=== PATIENT | female | born 1955 | race Caucasian/White ===

== ENCOUNTER → 2016-11-18 | Outpatient (CLI) | payer BC ==
[~2016-11-18] MED LIST: CLAR10TA13 PO; IBUP200C PO; ISOVUE-370 76% 100ML VIAL (Q9967) As Ordered ONE; PANT40TA2 PO; PROT1TAB2 PO; PROTPAK PO; TYLE325T5 PO; ZOLP5TAB PO
--- NOTE | 2016-11-18 17:51 | REP ---
CT study of the chest with IV contrast: History: Restaging baseline for starting chemotherapy with right paratracheal endobronchial adenocarcinoma. Comparison CT study is from August 31, 2016. Comparison PET/CT study is reviewed from August 26, 2016. CT contrast dose: 75 ml of Isovue 370 is administered intravenously. Findings: The right paratracheal mediastinal mass noted to be avid on PET scintigraphy is again seen. This indents the right lateral margin of the distal trachea and the superior margin of the mainstem bronchus. It measures 2.9 cm in craniocaudal span by 1.5 cm in medial to lateral by 1.9 cm anterior to posterior. There is subtle irregularity of the right anterolateral distal tracheal margin just above the teresa. The lesion is only very slightly larger than on the August 31, 2016 study. There is post-treatment or postobstructive change in some of the right upper lobe distribution with air bronchograms and partial collapse. There is some associated fibrosis. Remaining lung macdonald are clear. No pulmonary parenchymal mass lesion is seen. There is a small right pleural effusion. This appears to be slightly decreased. There is a small amount of pericardial effusion. This is decreased since the August 31, 2016 study. No adrenal lesion is seen. Gallstones are noted in the gallbladder. No liver mass lesion is observed. An Sxycfx-L-Jlfx catheter is noted via the left side. Impression: 2.9 cm right paratracheal mass, which indents the right lateral and the right anterior margin of the trachea and the right mainstem bronchus. Postoperative and post-treatment volume loss in the right lung. Small right pleural and small pericardial effusion. Signed by Kali Morgan MD 11/18/2016 06:40 P
== END ==
LOC: M RAD 16:23
PROVIDERS: ATTEND Internal Medicine Medical Oncology
DX: C34.90 Malignant neoplasm of unspecified part of unspecified bronchus or lung (principal); J90 Pleural effusion, not elsewhere classified
CPT/HCPCS: 71260; Q9967

== ENCOUNTER → 2016-12-10 | Outpatient (REF) | payer BC ==
[~2016-12-10] MED LIST changes: -ISOVUE-370 76% 100ML VIAL (Q9967) As Ordered ONE
== END ==
LOC: M LAB REF 13:08
PROVIDERS: ATTEND Internal Medicine Medical Oncology
DX: C34.90 Malignant neoplasm of unspecified part of unspecified bronchus or lung (principal); C50.919 Malignant neoplasm of unspecified site of unspecified female breast

== ENCOUNTER → 2017-01-14 | Outpatient (CLI) | payer BC, OTHER ==
[~2017-01-14] MED LIST changes: +ISOVUE-370 76% 100ML VIAL (Q9967) As Ordered ONE
--- NOTE | 2017-01-14 09:40 | REP ---
Clinical: Restaging lung cancer. Follow-up. Technique: Axial contrast enhanced images from the thoracic inlet to the upper abdomen using 100 ml Isovue 370 intravenous contrast material with coronal and sagittal re-formations. Comparison: 11/18/2016. Findings: Chronic post radiation and postsurgical changes involving the right upper lobe emanating from the hilum to the periphery as well as small similar appearing area along the medial aspect of the left upper lobe abutting the mediastinum remains stable. The soft tissue area along the right paratracheal mediastinum which was no to be positive on PET CT currently measures approximately 1.8 x 1.8 x 2.5 cm and is essentially unchanged compared to 11/18/2016 (images 18 - 25). No new areas of abnormal soft tissue, pulmonary consolidation, nodule or mass lesion are identified and the lung macdonald are otherwise aerated and stable. Postsurgical tenting and elevation along the right diaphragmatic surface remains unchanged. No new pleural effusion/reaction. No pneumothorax. The mediastinum demonstrates normal, stable appearance to the thoracic aorta, heart and pericardium with small stable pericardial fluid again identified. Musculoskeletal structures are intact. Limited evaluation of the upper abdomen again demonstrates cholelithiasis and subcentimeter hepatic cyst along with normal bilateral adrenal glands. Impression: 1. Right paratracheal soft tissue density which was positive on PET CT in the midst of the surrounding stable postradiation and postsurgical changes is unchanged when compared to 11/18/2016. 2. No new acute mediastinal or pleuroparenchymal process is appreciated. 3. Abdominal findings unchanged including sub centimeter hepatic cyst, cholelithiasis and normal bilateral adrenal glands. Signed by Kyler Valdivia MD 01/14/2017 09:31 A
== END ==
LOC: M RAD 08:12
PROVIDERS: ATTEND Nurse Practitioner Family
DX: C34.90 Malignant neoplasm of unspecified part of unspecified bronchus or lung (principal)
CPT/HCPCS: 71260; Q9967

== ENCOUNTER → 2017-03-17 | Outpatient (CLI) | payer BC, OTHER ==
[~2017-03-17] MED LIST changes: -ISOVUE-370 76% 100ML VIAL (Q9967) As Ordered ONE
--- NOTE | 2017-03-18 09:47 | REP ---
PET/CT: HISTORY: Restaging non-small cell lung carcinoma. Right paratracheal and endotracheal recurrence in a previously radiated field. There is also a previous history of breast carcinoma in 2008. The patient is status post recent chemotherapy for the lung malignancy. COMPARISONS: Comparison PET-CT studies are reviewed from August 26, 2016 and January 03, 2015. June 21, 2014 PET/CT is also reviewed. Comparison chest CT study most recently is from January 14, 2017. TECHNIQUE: 53 minutes following the intravenous injection of a 7.6 mCi dose of F-18 FDG, three-dimensional PET scintigraphy is acquired from the skull base to the proximal thighs. Triplanar noncontrast CT scanning is acquired through the same anatomic range for attenuation correction, and image registration with scan parameters optimized to minimize radiation exposure to the patient. PET scintigraphy and CT datasets were fused and displayed on a workstation with multiplanar and projection display capability. PET/CT FINDINGS: There is persistent hypermetabolic donna uptake in the right paratracheal region of the mediastinum on today's PET scintigraphy. Maximum standard uptake value is 5.4. Previously the standard uptake value in this lesion was 10.0. It appears smaller as well. No other abnormal hilar or mediastinal hypermetabolic focus is seen. There is considerable scarring and partial collapse in the right upper lobe postradiation change and there is some pleural thickening or pleural fluid in the right base. Mild pericardial effusion is seen. The head and neck soft tissues are unremarkable. No abnormal skeletal hypermetabolic uptake is appreciated. No abnormal hypermetabolic uptake is seen in the abdomen or pelvis. Incidental note is again made of gallstones. There is a left-sided Umxyih-J-Etrg catheter. IMPRESSION: PET scintigraphy consistent with partial response. Some residual right paratracheal mediastinal hypermetabolic uptake remains, decreased in avidity and size since the prior PET/CT study. Signed by Kali Morgan MD 03/18/2017 12:38 P
== END ==
LOC: M PLARAD 14:13
PROVIDERS: ATTEND Internal Medicine Medical Oncology
DX: C34.90 Malignant neoplasm of unspecified part of unspecified bronchus or lung (principal)
CPT/HCPCS: 78815; A9552

== ENCOUNTER → 2017-05-18 | Outpatient (CLI) | payer BC, OTHER ==
[~2017-05-18] MED LIST changes: -CLAR10TA13 PO; +CLAR1TAB13 PO; -IBUP200C PO; +IBUP200C10 PO
== END ==
LOC: M PLARAD 12:52
PROVIDERS: ATTEND Nurse Practitioner Family
DX: C34.90 Malignant neoplasm of unspecified part of unspecified bronchus or lung (principal)
CPT/HCPCS: 78815; A9552

== ENCOUNTER → 2017-05-26 | Outpatient (CLI) | payer BC, OTHER ==
--- NOTE | 2017-06-01 13:47 | REP ---
Whole body PET CT scan: Comparison is a whole body PET CT scan dated 03/17/2017. Neck and supraclavicular areas: There are no hypermetabolic foci. This is unchanged. Chest: There is a persisting hypermetabolic focus in the right paratracheal zone just above the bronchus intermedius, similar to the prior study. The standard uptake value today measures 6.42. This is likely within a paratracheal node. The node measures a 1 cm short axis. This is not significantly changed from the prior study. Right perihilar parenchymal scarring without hypermetabolic uptake is again identified, unchanged. Abdomen, pelvis and upper thighs: There are no hypermetabolic foci. This is unchanged. Diffuse skeletal uptake is noted in vertebral bodies and femoral shafts bilaterally, likely secondary to marrow stimulation. Impression: There is a focal persisting right paratracheal hypermetabolic focus, similar to the prior study. No other hypermetabolic foci are identified. The studies performed with 10 mCi of F 18 FDG. Signed by Neo Restrepo MD 06/01/2017 01:39 P
== END ==
LOC: M PLARAD 08:20
PROVIDERS: ATTEND Nurse Practitioner Family
DX: C34.90 Malignant neoplasm of unspecified part of unspecified bronchus or lung (principal)
CPT/HCPCS: 78815; A9552

== ENCOUNTER → 2017-08-11 | Outpatient (CLI) | payer BC, OTHER ==
--- NOTE | 2017-08-14 10:49 | REP ---
Whole body PET CT scan for restaging lung carcinoma: Comparisons are the prior whole body PET CT scan dated 05/26/[address] dated 01/14/2017. Whole-body scanning is performed from skull base to the upper thighs. Neck and supraclavicular areas: There is uptake in the costovertebral joint of the right first rib as an interval change with the maximal standard uptake value measuring 4.5. There are no other foci in the neck or supraclavicular areas. Chest: There is a focal zone of soft tissue fullness in the right paratracheal area, again demonstrating uptake with the maximal standard uptake value measuring 8.6. The uptake in this area or previous he had a standard uptake value of 6.4. There is a pericardial effusion as an interval change. There is an an Blxtyk-A-Arsq catheter entering from left with the tip at the confluence of the superior vena cava and right atrium. There is a focal zone of uptake in the right atrium at the tip of this Rikknz-W-Kgxg catheter with a maximal standard uptake value of 6.6. The uptake in this location previously measured 3.9. There is a small right pleural effusion is slightly larger than previously. There are no other foci in the chest. Abdomen, pelvis and upper thighs: There are no hypermetabolic foci. Specifically there are no adrenal foci. There are no hepatic foci. There is a diffuse skeletal uptake as previously, likely from marrow stimulation medication. Impression: The There is new uptake in the costovertebral junction of the right first rib. There is persisting uptake in the right paratracheal area. There is persisting uptake in the right atrium at the tip of the Mjxkfu-G-Tcgt catheter. These foci are unchanged. There is a small right pleural effusion, slightly larger than previously. There is a pericardial effusion, not present previously. There is chronic parenchymal scarring and retraction posteromedially in the upper lobe of the right lung, unchanged. Signed by Neo Restrepo MD 08/14/2017 10:41 A
== END ==
LOC: M PLARAD 09:34
PROVIDERS: ATTEND Internal Medicine Medical Oncology
DX: C34.90 Malignant neoplasm of unspecified part of unspecified bronchus or lung (principal)
CPT/HCPCS: 78815; A9552

== ENCOUNTER → 2017-09-20 | Outpatient (REF) | payer BC, OTHER | LOC: M LAB REF 17:20 | PROVIDERS: ATTEND Internal Medicine Medical Oncology | DX: C34.90 Malignant neoplasm of unspecified part of unspecified bronchus or lung (principal); C50.919 Malignant neoplasm of unspecified site of unspecified female breast ==

== ENCOUNTER → 2017-10-11 | Outpatient (REF) | payer BC, OTHER | LOC: M LAB REF 18:24 | PROVIDERS: ATTEND Internal Medicine Medical Oncology | DX: C34.90 Malignant neoplasm of unspecified part of unspecified bronchus or lung (principal); C50.919 Malignant neoplasm of unspecified site of unspecified female breast ==

== ENCOUNTER → 2017-11-01 | Outpatient (REF) | payer BC, OTHER ==
[2017-11-01 21:44] LABS: THYROID STIMULATING HORMONE 0.571 uIU/ML (0.358-3.740)
== END ==
LOC: M LAB REF 17:59
DX: C50.919 Malignant neoplasm of unspecified site of unspecified female breast (principal); C78.00 Secondary malignant neoplasm of unspecified lung
CPT/HCPCS: 84443

== ENCOUNTER → 2017-11-22 | Outpatient (REF) | payer BC, OTHER | LOC: M LAB REF 18:27 | DX: C50.919 Malignant neoplasm of unspecified site of unspecified female breast (principal); C34.90 Malignant neoplasm of unspecified part of unspecified bronchus or lung | CPT/HCPCS: 84443 ==

== ENCOUNTER → 2017-12-17 | Outpatient (CLI) | payer BC, OTHER ==
[~2017-12-17] MED LIST changes: -CLAR1TAB13 PO; +GASTROGRAFIN SOLUTION 30ML (Q9963) As Ordered; -IBUP200C10 PO; +ISOVUE-370 76% 100ML VIAL (Q9967) As Ordered; -PANT40TA2 PO; -PROT1TAB2 PO; -PROTPAK PO; -TYLE325T5 PO; -ZOLP5TAB PO
== END ==
LOC: M RAD 10:39
DX: C34.90 Malignant neoplasm of unspecified part of unspecified bronchus or lung (principal)

== ENCOUNTER → 2017-12-20 | Outpatient (REF) | payer BC, OTHER | LOC: M LAB REF 17:51 | DX: C50.919 Malignant neoplasm of unspecified site of unspecified female breast (principal); C34.90 Malignant neoplasm of unspecified part of unspecified bronchus or lung | CPT/HCPCS: 84443 ==

== ENCOUNTER → 2018-01-10 | Outpatient (REF) | payer BC, OTHER ==
[2018-01-10 19:25] LABS: THYROID STIMULATING HORMONE 0.808 uIU/ML (0.358-3.740)
== END ==
LOC: M LAB REF 17:25
DX: C34.90 Malignant neoplasm of unspecified part of unspecified bronchus or lung (principal); C50.919 Malignant neoplasm of unspecified site of unspecified female breast
CPT/HCPCS: 84443

== ENCOUNTER → 2018-02-09 | Outpatient (CLI) | payer BC, OTHER ==
[~2018-02-09] MED LIST changes: -GASTROGRAFIN SOLUTION 30ML (Q9963) As Ordered
== END ==
LOC: M RAD 14:12
DX: R05 Cough (principal); C34.90 Malignant neoplasm of unspecified part of unspecified bronchus or lung; R06.2 Wheezing; I31.3 Pericardial effusion (noninflammatory); N20.0 Calculus of kidney

== ENCOUNTER → 2018-02-21 | Outpatient (REF) | payer BC, OTHER ==
[2018-02-21 19:21] LABS: THYROID STIMULATING HORMONE 0.511 uIU/ML (0.358-3.740)
== END ==
LOC: M LAB REF 18:41
DX: Z79.899 Other long term (current) drug therapy (principal); C79.31 Secondary malignant neoplasm of brain; Z85.3 Personal history of malignant neoplasm of breast
CPT/HCPCS: 84443

== ENCOUNTER → 2018-03-14 | Outpatient (REF) | payer BC, OTHER ==
[2018-03-14 19:02] LABS: THYROID STIMULATING HORMONE 0.436 uIU/ML (0.358-3.740)
== END ==
LOC: M LAB REF 17:52
DX: Z79.899 Other long term (current) drug therapy (principal); C34.11 Malignant neoplasm of upper lobe, right bronchus or lung; C79.31 Secondary malignant neoplasm of brain; Z85.3 Personal history of malignant neoplasm of breast
CPT/HCPCS: 84443

== ENCOUNTER → 2018-04-25 | Outpatient (REF) | payer OTHER | LOC: M LAB REF 17:20 | DX: Z79.899 Other long term (current) drug therapy (principal); C34.11 Malignant neoplasm of upper lobe, right bronchus or lung; C79.31 Secondary malignant neoplasm of brain; Z85.3 Personal history of malignant neoplasm of breast | CPT/HCPCS: 84443 ==

== ENCOUNTER → 2018-05-02 | Outpatient (CLI) | payer BC, OTHER | LOC: M RAD 10:07 | DX: C34.90 Malignant neoplasm of unspecified part of unspecified bronchus or lung (principal) | CPT/HCPCS: Q9967 ==

== ENCOUNTER → 2018-05-06 | Outpatient (CLI) | payer BC, OTHER ==
[~2018-05-06] MED LIST changes: -ISOVUE-370 76% 100ML VIAL (Q9967) As Ordered; +PROHANCE 279.3MG/ML 5ML VIAL (A9576) As Ordered
== END ==
LOC: M RAD 12:25
DX: Z85.3 Personal history of malignant neoplasm of breast (principal); Z96.89 Presence of other specified functional implants
CPT/HCPCS: A9576

== ENCOUNTER → 2018-05-16 | Outpatient (REF) | payer BC, OTHER ==
[2018-05-16 19:13] LABS: THYROID STIMULATING HORMONE 0.972 uIU/ML (0.358-3.740)
== END ==
LOC: M LAB REF 17:53
DX: C34.11 Malignant neoplasm of upper lobe, right bronchus or lung (principal); C79.31 Secondary malignant neoplasm of brain; Z85.3 Personal history of malignant neoplasm of breast; Z79.899 Other long term (current) drug therapy
CPT/HCPCS: 84443

== ENCOUNTER → 2018-07-18 | Outpatient (REF) | payer OTHER | LOC: M LAB REF 18:03 | DX: C34.11 Malignant neoplasm of upper lobe, right bronchus or lung (principal); C79.31 Secondary malignant neoplasm of brain; Z85.3 Personal history of malignant neoplasm of breast ==

== ENCOUNTER → 2018-08-16 | Outpatient (CLI) | payer BC, OTHER | LOC: M PLARAD 15:25 | DX: C34.11 Malignant neoplasm of upper lobe, right bronchus or lung (principal); Z85.3 Personal history of malignant neoplasm of breast; J84.10 Pulmonary fibrosis, unspecified; I31.3 Pericardial effusion (noninflammatory); K80.20 Calculus of gallbladder without cholecystitis without obstruction; N28.1 Cyst of kidney, acquired | CPT/HCPCS: 78815 ==

== ENCOUNTER → 2018-11-11 | Day surgery (SDC) | payer BC, OTHER ==
[~2018-11-11] VITALS: Ht 157.5 cm; Wt 68.0 kg
[~2018-11-11] MED LIST changes: +BIOT10TA2 PO; +CALCTAB75 PO; +CLAR1TAB13 PO; +FISH120016 PO; +GABA-1171 PO; +IBUP200C25 PO; +LIDOCAINE 2% INJ 100 MG/5 ML SDV (FOR ANES.) As Ordered ONE; +MULT1TAB10 PO; +PANT40TA3 PO; -PROHANCE 279.3MG/ML 5ML VIAL (A9576) As Ordered; +PROPOFOL 200 MG/20 ML VIAL As Ordered ONE; +PROT1TAB2 PO; +PROTPAK PO; +TRAM50TA2 PO; +TYLE325T5 PO; +ZOLP5TAB PO; +[UNRECOGNIZED DRUG - OTHER] IV; +[UNRECOGNIZED DRUG - OTHER] IV; +fentaNYL 100 MCG/2 ML INJECTION (J3010) As Ordered ONE
== END | disposition home or self-care (01) ==
LOC: M OPP 10:48
PROVIDERS: ATTEND Internal Medicine Gastroenterology
DX: R12 Heartburn (principal); Z53.8 Procedure and treatment not carried out for other reasons

== ENCOUNTER 2018-12-29 13:02 | Day surgery (SDC) | payer BC, OTHER ==
[~2018-12-29] VITALS: Ht 157.5 cm; Wt 68.9 kg
[~2018-12-29 13:02] MED LIST changes: -LIDOCAINE 2% INJ 100 MG/5 ML SDV (FOR ANES.) As Ordered ONE; -PROPOFOL 200 MG/20 ML VIAL As Ordered ONE; -fentaNYL 100 MCG/2 ML INJECTION (J3010) As Ordered ONE
[2018-12-29] MEDS ORDERED: NS 1,000 ML IV ONE (14:00)
[2018-12-29] MEDS ORDERED: PROPOFOL 200 MG/20 ML VIAL As Ordered ONE (14:16)
[2018-12-29] MEDS ORDERED: LIDOCAINE 2% INJ 100 MG/5 ML SDV (FOR ANES.) As Ordered ONE (14:16)
[2018-12-29] MEDS ORDERED: fentaNYL 100 MCG/2 ML INJECTION (J3010) As Ordered ONE (14:34)
--- NOTE | 2018-12-29 14:56 | ROOR ---
Patient Name: Arlyn Bright Procedure Date: 12/29/2018 2:38 PM Date of : 1955 Age: 63 Room: [facility] Gender: Female Note Status: Finalized Procedure: Upper GI endoscopy Indications: Surveillance for malignancy due to personal history of Quinonez's esophagus Providers: Mejia THOMPSON MD Referring MD: NGOC STALLNIGS MD Requesting Provider: Medicines: Monitored Anesthesia Care Complications: No immediate complications. Procedure: Pre-Anesthesia Assessment: - The heart rate, respiratory rate, oxygen saturations, blood pressure, adequacy of pulmonary ventilation, and response to care were monitored throughout the procedure. The Endoscope was introduced through the mouth, and advanced to the second part of duodenum. The upper GI endoscopy was accomplished without difficulty. The patient tolerated the procedure well. Findings: There were esophageal mucosal changes consistent with short-segment Quinonez's esophagus present in the distal esophagus. The maximum longitudinal extent of these mucosal changes was 1 cm in length. Mucosa was biopsied with a cold forceps for histology randomly from 35 to 36 cm from the incisors. The entire examined stomach was normal. The examined duodenum was normal. Impression: - Esophageal mucosal changes consistent with short-segment Quinonez's esophagus. Biopsied. - Normal stomach. - Normal examined duodenum. Recommendation: - Repeat upper endoscopy in 3 years for surveillance. - (repeat colonoscopy will also be due in 2021) Mejia Thompson MD Mejia THOMPSON MD 12/29/2018 2:55:55 PM This report has been signed electronically. Number of Addenda: 0 Note Initiated On: 12/29/2018 2:38 PM Estimated Blood Loss: Estimated blood loss: none.
[2018-12-29 15:19] VITALS: BP 103/66
== END 2018-12-29 15:21 | disposition home or self-care (01) ==
LOC: M OPP 13:02
PROVIDERS: ATTEND Internal Medicine Gastroenterology
DX: K22.70 Barrett's esophagus without dysplasia (principal)
CPT/HCPCS: 43239; 88305; J3010

== ENCOUNTER → 2019-02-07 | Outpatient (CLI) | payer BC, OTHER ==
[~2019-02-07] MED LIST changes: +KEYT1INJ IV
--- NOTE | 2019-02-07 12:57 | REP ---
PET/CT: HISTORY: Monitoring response. Restaging non-small cell lung carcinoma. Post chemotherapy. The patient also has a history of stage II right breast malignancy status post chemo and radiation therapy. COMPARISONS: Comparison is made with PET-CTs, the most recent of which is from August 16, 2018. TECHNIQUE: 55 minutes following the intravenous injection of a 8.91 mCi dose of F-18 FDG, three-dimensional PET scintigraphy is acquired from the skull base to the proximal thighs. Triplanar noncontrast CT scanning is acquired through the same anatomic range for attenuation correction, and image registration with scan parameters optimized to minimize radiation exposure to the patient. PET scintigraphy and CT datasets were fused and displayed on a workstation with multiplanar and projection display capability. PET/CT FINDINGS: There is no definite abnormal hypermetabolic uptake in the chest. Post-treatment changes are again noted in the right upper lobe perihilar region. In the region of the azygos vein there is an area of FDP accumulation with maximum standard uptake value 3.8. This is essentially the same avidity as mediastinal blood and is probably vascular. It is unchanged. There is no donna or pulmonary parenchymal hypermetabolic uptake. A small pericardial effusion persists without hypermetabolic uptake. Pleuroparenchymal reaction is again seen in the right base. No abnormal hypermetabolic uptake is seen within the abdomen or pelvis. Head and neck soft tissues are unremarkable. IMPRESSION: Stable PET scintigraphic findings. No abnormal hypermetabolic uptake seen. Electronically Signed by Kali Morgan MD 02/07/2019 01:04 P
== END ==
LOC: M PLARAD 08:25
PROVIDERS: ATTEND Nurse Practitioner Family
DX: C34.90 Malignant neoplasm of unspecified part of unspecified bronchus or lung (principal); Z51.81 Encounter for therapeutic drug level monitoring; Z92.21 Personal history of antineoplastic chemotherapy; Z92.3 Personal history of irradiation; Z85.3 Personal history of malignant neoplasm of breast
CPT/HCPCS: 78815; A9552

== ENCOUNTER → 2019-05-09 | Outpatient (CLI) | payer BC, OTHER ==
[~2019-05-09] MED LIST changes: +CALCD50TA PO; +MULTCAP PO; +POTA1TAB14 PO; +PROHANCE 279.3MG/ML 15ML VIAL (A9576) As Ordered ONE; +VALA1TAB64 PO
--- NOTE | 2019-05-09 12:04 | REP ---
MRI BILATERAL BREASTS WITH AND WITHOUT CONTRAST: HISTORY: Right breast cancer. COMPARISON: 05/06/2018. Multiple sequences were obtained in the axial, coronal and sagittal planes prior to and following the intravenous administration of 13.8 mL ProHance. There is mild scattered fibroglandular tissue bilaterally. Right breast is smaller than the left. Postsurgical changes are again seen in the right breast posterolaterally with areas of magnetic susceptibility artifact. There is mild bilateral background parenchymal enhancement. No significant cystic changes are seen bilaterally. There is no axillary adenopathy bilaterally. There is no new enhancing mass or morphologic abnormality. Once again, there is artifact posteromedially on the left from the patient's Mediport catheter. IMPRESSION: BIRADS category 2 benign bilateral breast MRI. No suspicious enhancing mass or morphologic abnormality. Electronically Signed by Neo De La Rosa MD 05/09/2019 05:33 P
== END ==
LOC: M RAD 09:31
PROVIDERS: ATTEND Nurse Practitioner Family
DX: Z85.3 Personal history of malignant neoplasm of breast (principal); Z95.828 Presence of other vascular implants and grafts
CPT/HCPCS: A9576; C8908

== ENCOUNTER → 2019-08-03 | Outpatient (CLI) | payer BC, OTHER ==
[~2019-08-03] MED LIST changes: -POTA1TAB14 PO; -PROHANCE 279.3MG/ML 15ML VIAL (A9576) As Ordered ONE; +VALA1TAB2 PO; -VALA1TAB64 PO
--- NOTE | 2019-08-03 14:25 | REP ---
Whole body radionuclide bone scan: The patient has a history of breast carcinoma in 2008 and lung carcinoma in 2011 and brain metastases in 2017. She complains of low back pain and bilateral hip pain for the past few months specially after sitting for a while. There are no comparison studies. The patient had a PET scan on 02/07/2019 that identified. No hypermetabolic foci. There are no foci in the calvarium, or ribs. There is a degenerative pattern of uptake bilaterally symmetric in the shoulders. There is uptake at the bases of the thumbs bilaterally, likely degenerative. There is focal uptake along the right lateral margin of the L4 vertebral body, possibly in the L4 pedicle. There is no other uptake in the spine. There is focal uptake in the left hip greater trochanter. There is uptake in the right great toe. Impression: The uptake in L4 and in the left hip greater trochanter is nonspecific. This could represent degenerative disc disease in the spine and trochanteric bursitis and hip, however could also represent skeletal metastases. The uptake in the right great toe could represent arthritic uptake or metastasis. The uptake in the thumbs and shoulders as likely degenerative. The study is performed with 21.9 mCi of technetium 99m labeled MDP Electronically Signed by Neo Restrepo MD 08/03/2019 02:16 P
== END ==
LOC: M RAD 09:24
PROVIDERS: ATTEND Nurse Practitioner Family
DX: C34.91 Malignant neoplasm of unspecified part of right bronchus or lung (principal); M54.5 Low back pain
CPT/HCPCS: 78306; A9503

== ENCOUNTER → 2019-08-09 | Outpatient (CLI) | payer BC, OTHER ==
--- NOTE | 2019-08-09 14:34 | REP ---
PET/CT: History: Monitoring response to treatment, lung cancer. Comparisons: Comparison PET/CT study February 07, 2019. There is a comparison PET/CT study from August 16, 2018 as well. TECHNIQUE: 48 minutes following the intravenous injection of a 8.42 mCi dose of F-18 FDG, three-dimensional PET scintigraphy is acquired from the skull base to the proximal thighs. Triplanar noncontrast CT scanning is acquired through the same anatomic range for attenuation correction, and image registration with scan parameters optimized to minimize radiation exposure to the patient. PET scintigraphy and CT datasets were fused and displayed on a workstation with multiplanar and projection display capability. PET/CT Findings: Head and neck soft tissues show no suspicious uptake. There is mildly increased uptake in the parotid and submandibular salivary glands symmetrically. No mass lesion is seen. No abnormal donna uptake is observed. Left-sided Lkaxue-O-Wpbw catheter is noted. There are post thoracotomy and postradiation therapy changes in the right hilar and perihilar region as noted previously. The previously described azygos area of FDG accumulation is again seen maximum standard uptake value remains physiologic 3.08. No mass lesion or adenopathy is visible here. No abnormal hypermetabolic uptake is seen within the chest. In the abdomen and pelvis there is normal distribution of FDG. There is slightly asymmetric increased uptake in the left adrenal gland. There is no observable mass lesion. Maximum SUV value is equivocal at 2.82. This is essentially unchanged from the prior study. Cholelithiasis is again noted. No other abnormal hypermetabolic uptake is seen in the abdomen or pelvis. There is mild skeletal muscle uptake adjacent to the greater trochanters of the hips bilaterally consistent with tendonitis or bursitis change. No suspicious skeletal hypermetabolic uptake is appreciated. Impression: No suspicious hypermetabolic uptake noted. Slight asymmetry in uptake in the adrenal glands without a observable mass, left slightly more active than right. This is unchanged. Electronically Signed by Kali Morgan MD 08/09/2019 05:43 P
== END ==
LOC: M PLARAD 07:39
PROVIDERS: ATTEND Nurse Practitioner Family
DX: C34.11 Malignant neoplasm of upper lobe, right bronchus or lung (principal); K80.80 Other cholelithiasis without obstruction
CPT/HCPCS: 78815; A9552

== ENCOUNTER → 2019-08-25 | Outpatient (CLI) | payer BC, OTHER ==
--- NOTE | 2019-08-25 15:16 | REP ---
MRI LEFT HIP WITH AND WITHOUT CONTRAST: TECHNIQUE: Coronal T1, STIR through the pelvis, T2 fat sat, left hip all three planes, axial oblique proton density fat sat left hip. Axial T1 fat sat, post IV gadolinium axial and coronal fat sat with the intravenous administration of 13 mL ProHance. Well defined 4 mm cyst is seen in the left femoral neck with no enhancement, appearing benign. No other abnormal bone marrow signal is seen in the visualized osseous structures of the pelvis and left hip. There is no bone marrow edema or abnormal bone marrow enhancement. There is no occult fracture. No metastatic lesion is seen. I see no evidence of a labral tear. There is no paralabral cyst. There is a normal amount of joint fluid. There is ill-defined high signal in the soft tissues along the greater trochanter of the proximal left femur compatible with mild greater trochanteric tendinobursitis. Other surrounding soft tissue structures appear unremarkable. Visualized intrapelvic structures appear unremarkable. IMPRESSION: Benign appearing 4 mm cyst left femoral neck. No other evidence of bone lesion or metastatic lesion. There are findings of mild left sided greater trochanteric tendinobursitis. No other significant finding. Electronically Signed by Neo De La Rosa MD 08/25/2019 03:50 P
--- NOTE | 2019-08-25 15:17 | REP ---
MRI lumbar spine: 08/25/2019. Indication: New low back pain. Comparison: None. Technique: Multiplanar short and long TR sequences of the lumbar spine were performed including post-gadolinium T1 images. Findings: Vertebral body alignment is within anatomical limits. There is a focal area of heterogeneous signal and corresponding gadolinium enhancement within the posterior aspect of the L3 as well as a small area within the inferior aspect of L2. The visualized spinal cord is unremarkable. Incidental S2 sacral Tarlov cyst is present. L1/L2: Left posterior lateral renal lesion is present measuring approximately 2.4 cm. There is no disc herniation or significant spinal canal / neural foraminal narrowing. L2/L3: Diffuse disc bulge, facet arthropathy and ligamental laxity are present with mild to moderate bilateral recess and neural foraminal narrowing. L3/L4: Significant bilateral facet arthropathy is present with mild diffuse disc bulge which is more apparent on the right and does contact the exiting right L3 nerve root. There is moderate to severe right greater than left bilateral recess narrowing. L4/L5: Diffuse disc bulge and bilateral facet arthropathy are present with moderate to severe left and mild to moderate right lateral recess narrowing. The neural foramen are patent. L5/S1: There is no disc herniation or areas of significant spinal canal / neural foraminal narrowing. Impression: Areas of abnormal marrow signal and corresponding pathologic gadolinium enhancement as described. Please correlate with recent PET CT studies. Multilevel degenerative sequelae as described. Please correlate with radicular level is present. Electronically Signed by Hardeep Banks DO 08/25/2019 03:08 P
== END ==
LOC: M PLARAD 13:04
PROVIDERS: ATTEND Internal Medicine Medical Oncology
DX: M54.5 Low back pain (principal); M25.559 Pain in unspecified hip

== ENCOUNTER → 2020-03-26 | Outpatient (CLI) | payer MEDICARE, BC, OTHER ==
[~2020-03-26] MED LIST changes: +COLLCAP PO; +OSTE1TAB2 PO; +POTA1TAB14 PO; -VALA1TAB2 PO; +VALA1TAB5 PO
--- NOTE | 2020-03-27 09:42 | REP ---
REASON FOR EXAM: Followup breast and lung cancer. Most recently, recurrence of lung cancer in 2017. All prior PET/CT scans were reviewed, the latest of which is dated 08/09/2019 and showing no abnormal hypermetabolic activity. After the intravenous administration of 8.13 millicuries of FDG18, triplane whole body PET/CT was performed from the skull base to the mid thigh. Postoperative and post radiation changes are again seen in the chest. These are stable both from a standard CT imaging standpoint and from a PET/CT standpoint. No abnormal hypermetabolic activity has developed in the neck, chest, abdomen or pelvis. The examination is stable. The hypermetabolic activity and slight asymmetry seen in the left adrenal gland is completely unchanged. IMPRESSION: Stable PET/CT findings as described above. Electronically Signed by Abelardo Yi DO 03/27/2020 11:25 A
== END ==
LOC: M PLARAD 15:21
PROVIDERS: ATTEND Internal Medicine Medical Oncology
DX: C34.11 Malignant neoplasm of upper lobe, right bronchus or lung (principal)
CPT/HCPCS: 78815; A9552

== ENCOUNTER → 2020-05-15 | Outpatient (CLI) | payer MEDICARE, BC, OTHER ==
[~2020-05-15] MED LIST changes: +PANT40TA29 PO; -PANT40TA3 PO; +PROHANCE 279.3MG/ML 15ML VIAL As Ordered ONE
--- NOTE | 2020-05-15 12:15 | REP ---
BILATERAL BREAST MRI STUDY WITHOUT AND WITH IV GADOLINIUM: HISTORY: History breast cancer and strong positive family history breast cancer. Annual exam. There is also history of lung cancer. History of right breast malignancy diagnosed in 2006 status post right lumpectomy adjuvant chemotherapy. Comparison PET/CT study March 26, 2020. Comparison breast MRI study May 09, 2019. TECHNIQUE: Three Jossy MRI imaging was performed with a dedicated breast coil. Axial, coronal, and sagittal T1 and T2-weighted scans were obtained with and without fat saturation in the usual fashion. The study includes dynamically acquired post gadolinium enhanced imaging subtraction imaging. Maximal intensity projection and multiplanar re-formation imaging is included as well. The study was interpreted with the aid of [employer], an FDA approved computer-aided detection (CAD) software program, on a dedicated breast MRI work station. The gadolinium enhancement dose is 14 mL of intravenous ProHance. FINDINGS: There are postsurgical changes in the lateral aspect of the right breast. The right breast is noted to be slightly smaller than the left as before. These are post-treatment changes. No suspicious morphologic abnormality is seen in either breast on high-resolution pre- and postcontrast T1- and T2-weighted scans. Magnetic field susceptibility artifact is noted in the region of the Fiapdj-L-Xtuh catheter in the right subclavicular soft tissues. There is no evidence of axillary lymphadenopathy or significant breast cystic change. There is a mild pattern of background parenchymal enhancement. Dynamically acquired sequential post contrast images show no suspicious area of enhancement and/or washout in either breast to suggest malignancy. Subtraction images are unremarkable and unchanged. IMPRESSION: Stable BIRADS category 2 benign findings. Electronically Signed by Kali Morgan MD 05/15/2020 12:50 P
== END ==
LOC: M RAD 08:07
PROVIDERS: ATTEND Internal Medicine Medical Oncology
DX: C34.91 Malignant neoplasm of unspecified part of right bronchus or lung (principal); C50.919 Malignant neoplasm of unspecified site of unspecified female breast
CPT/HCPCS: A9576; C8908

== ENCOUNTER → 2020-07-24 | Outpatient (REF) | payer MEDICARE, OTHER ==
[~2020-07-24] MED LIST changes: +CALCCHW19 PO; -PROHANCE 279.3MG/ML 15ML VIAL As Ordered ONE
== END ==
LOC: M LAB REF 17:57
PROVIDERS: ATTEND Physician Assistant
DX: L57.0 Actinic keratosis (principal); L57.8 Other skin changes due to chronic exposure to nonionizing radiation
CPT/HCPCS: 11102; 88305; G0463

== ENCOUNTER → 2020-12-02 | Outpatient (CLI) | payer MEDICARE, BC, OTHER ==
--- NOTE | 2020-12-03 13:24 | REP ---
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 Local and intracranial recurrences in 2014 and 2016 respectively. There is also history of right breast invasive ductal carcinoma diagnosed in 2008. COMPARISON: Comparison PET-CT studies are dated March 26, 2020 and August 09, 2019. 07 February 2019 prior PET-CT is also reviewed.. TECHNIQUE: Fifty-four minutes following the intravenous injection of a 17.38 mCi dose of F-18 FDG, three-dimensional PET scintigraphy is acquired from the skull base to the proximal thighs. Triplanar noncontrast CT scanning is acquired through the same anatomic range for attenuation correction, and image registration with scan parameters optimized to minimize radiation exposure to the patient. PET scintigraphy and CT datasets were fused and displayed on a workstation with multiplanar and projection display capability. FINDINGS: Head and neck soft tissues are unremarkable. There is a left-sided Zmzezl-U-Oudv catheter. Chronic pleuroparenchymal fibrotic changes are noted in the right chest. No abnormal hypermetabolic uptake is seen within the thorax. Findings in the right chest appears stable morphologically and scintigraphically. In the abdomen and pelvis, normal hepatic, splenic, and gastrointestinal FDG accumulation is seen. Cholelithiasis is again noted. No new abnormal hypermetabolic uptake is seen in the abdomen or pelvis. Asymmetric uptake is again noted in the left adrenal gland. Maximum standard uptake value in the left adrenal gland today is 4.67. On 09 August 2019, left adrenal SUV value is 2.84. On 07 February 2019, left adrenal SUV 2.60. On 16 August 2018 left adrenal SUV 1.58. There is no visible adrenal mass. IMPRESSION: There is mildly hypermetabolic uptake in the left adrenal gland, SUV 4.67. Previously 2.84. There is no observable mass in the adrenal. Uncertain significance. Otherwise stable, negative PET-CT findings. Post treatment changes in the right chest. <Electronically signed by Yared Morgan > 12/03/20 [id number]
== END ==
LOC: M PLARAD 10:24
PROVIDERS: ATTEND Internal Medicine Medical Oncology
DX: C34.11 Malignant neoplasm of upper lobe, right bronchus or lung (principal); Z90.2 Acquired absence of lung [part of]; Z92.21 Personal history of antineoplastic chemotherapy; Z85.3 Personal history of malignant neoplasm of breast
CPT/HCPCS: 78815; A9552

== ENCOUNTER → 2021-01-31 | Outpatient (CLI) | payer MEDICARE, BC, OTHER ==
[~2021-01-31] MED LIST changes: +APPL300T4 PO; +MILK140C PO
== END ==
LOC: M ONCR 12:45
PROVIDERS: ATTEND Radiology Radiation Oncology
DX: C34.11 Malignant neoplasm of upper lobe, right bronchus or lung (principal)

== ENCOUNTER → 2021-04-30 | Outpatient (CLI) | payer MEDICARE, BC, OTHER ==
[~2021-04-30] MED LIST changes: +COVI2.5V IM; +FERR325T3 PO; +PROHANCE 279.3MG/ML 15ML VIAL As Ordered ONE
--- NOTE | 2021-04-30 13:26 | REP ---
INDICATION: BREAST CA. History of phyllodes tumor of the breast. There is also history of lung cancer. Right breast malignancy diagnosed in 2006 post right lumpectomy and chemotherapy. COMPARISON: Comparison breast MRI study is from May 15, 2020. TECHNIQUE: Three Jossy MRI imaging was performed with a dedicated breast coil. Axial, coronal, and sagittal T1 and T2 weighted scans were obtained with and without fat saturation in the usual fashion. The study includes dynamically acquired post gadolinium-enhanced imaging with image subtraction. Maximum intensity projection and multi planar reformation imaging is included as well. This study is interpreted with the aid of Targeted GrowthD, an FDA approved computer aided detection (CAD) software program, on a dedicated breast MRI workstation. The gadolinium enhancement dose is 14 mL of intravenous ProHance. FINDINGS: There is a mild amount of fibroglandular tissue bilaterally corresponding with the mammographic pattern. There is mild background parenchymal enhancement. There is no evidence of axillary lymphadenopathy or significant breast cystic change. High-resolution pre and post-contrast T1 and T2 weighted scans show no suspicious morphologic abnormality in either breast. Dynamically acquired sequential postcontrast images show no suspicious area of enhancement and washout kinetics in either breast to suggest malignancy. Subtraction images show no additional abnormality. The right breast is again noted to be smaller than the left. Magnetic field susceptibility artifact corresponding to Bsgwtt-Y-Npps catheter device is seen in the subclavicular region on the left. There is some post treatment fibrosis in the right lateral breast. No abnormality is noted in the chest wall on either side. IMPRESSION: BI-RADS category 2 benign bilateral breast MRI findings. <Electronically signed by Yared Morgan > 04/30/21 [id number]
== END ==
LOC: M RAD 10:15
PROVIDERS: ATTEND Internal Medicine Medical Oncology
DX: N64.89 Other specified disorders of breast (principal)
CPT/HCPCS: A9576; C8908

== ENCOUNTER → 2021-05-12 | Outpatient (CLI) | payer MEDICARE, BC, OTHER ==
[~2021-05-12] MED LIST changes: -PROHANCE 279.3MG/ML 15ML VIAL As Ordered ONE
--- NOTE | 2021-05-12 12:04 | REP ---
INDICATION: RESTAGING LUNG CANCER C34.11. Status post right upper lobectomy followed by chemo radiation. Local and intracranial recurrences in 2013 and 2016 respectively. There is also history of invasive ductal carcinoma in the right breast remotely, diagnosed in 2007. COMPARISON: Comparison PET-CT study December 02, 2020.. TECHNIQUE: Forty-nine minutes following the intravenous injection of a 8.89 mCi dose of F-18 FDG, three-dimensional PET scintigraphy is acquired from the skull base to the proximal thighs. Triplanar noncontrast CT scanning is acquired through the same anatomic range for attenuation correction, and image registration with scan parameters optimized to minimize radiation exposure to the patient. PET scintigraphy and CT datasets were fused and displayed on a workstation with multiplanar and projection display capability. FINDINGS: The head and neck soft tissues remain unremarkable. There are stable post treatment changes with volume loss and fibrosis in the right lung unchanged morphologically. No abnormal hypermetabolic uptake is seen within the thorax. In the abdomen and pelvis, normal hepatic, splenic, gastrointestinal, and genitourinary FDG accumulation is seen. No abnormal hypermetabolic uptake is observed in the abdomen or pelvis. Normal symmetric uptake in the adrenal glands is observed today, maximum standard uptake value 2.65 today, previously 4.67. Incidental findings include cholelithiasis and a left-sided Alboax-S-Rgnf catheter, a small sliding-type hiatal hernia, and a small left renal cyst. There is also colonic diverticulosis. IMPRESSION: No abnormal hypermetabolic uptake. <Electronically signed by Yared Morgan > 05/12/21 1200
== END ==
LOC: M PLARAD 08:08
PROVIDERS: ATTEND Internal Medicine Medical Oncology
DX: C34.11 Malignant neoplasm of upper lobe, right bronchus or lung (principal)
CPT/HCPCS: 78815; A9552

== ENCOUNTER → 2021-09-24 | Outpatient (CLI) | payer MEDICARE, BC, OTHER ==
[~2021-09-24] MED LIST changes: +NEUR100C PO; +PRED10TA2
== END ==
LOC: M WUC 15:59
PROVIDERS: ATTEND Internal Medicine
DX: M25.50 Pain in unspecified joint (principal); M19.041 Primary osteoarthritis, right hand

== ENCOUNTER → 2021-10-27 | Outpatient (CLI) | payer MEDICARE, BC, OTHER ==
[~2021-10-27] MED LIST changes: +RA T500C2 PO
== END ==
LOC: M PLARAD 07:32
PROVIDERS: ATTEND Internal Medicine Medical Oncology
DX: C34.11 Malignant neoplasm of upper lobe, right bronchus or lung (principal)
CPT/HCPCS: 78815; A9552

== ENCOUNTER → 2022-03-04 | Outpatient (CLI) | payer MEDICARE, BC, OTHER ==
[~2022-03-04] MED LIST changes: +CVS1CAP2 PO; +VITMTA PO
== END ==
LOC: M LABSMTC 11:06
PROVIDERS: ATTEND Anesthesiology
DX: Z01.812 Encounter for preprocedural laboratory examination (principal); Z20.822 Contact with and (suspected) exposure to COVID-19

== ENCOUNTER → 2022-04-14 | Outpatient (CLI) | payer MEDICARE, BC, OTHER ==
[~2022-04-14] MED LIST changes: +POTA-151 PO
== END ==
LOC: M PLARAD 08:13
PROVIDERS: ATTEND Nurse Practitioner
DX: R93.89 Abnormal findings on diagnostic imaging of other specified body structures (principal); C34.11 Malignant neoplasm of upper lobe, right bronchus or lung
CPT/HCPCS: 78815; A9552

== ENCOUNTER → 2022-04-29 | Outpatient (CLI) | payer MEDICARE, BC, OTHER ==
[~2022-04-29] MED LIST changes: +IRON27TA2 PO
== END ==
LOC: M LABSMTC 10:28
PROVIDERS: ATTEND Anesthesiology
DX: Z01.812 Encounter for preprocedural laboratory examination (principal); Z11.52 Encounter for screening for COVID-19

== ENCOUNTER 2022-05-04 11:12 | Day surgery (SDC) | payer MEDICARE, BC, OTHER ==
[~2022-05-04] VITALS: Ht 157.5 cm; Wt 66.9 kg
[~2022-05-04 11:12] MED LIST changes: +NS 1,000 ML IV ONE
[2022-05-04] MEDS ORDERED: KEYT1INJ IV (12:01)
[2022-05-04] MEDS ORDERED: fentaNYL 100 MCG/2 ML INJECTION As Ordered ONE (12:12)
[2022-05-04] MEDS ORDERED: LIDOCAINE 2% INJ 100 MG/5 ML SYRINGE As Ordered ONE (12:12)
[2022-05-04] MEDS ORDERED: propofoL 200 MG/20 ML VIAL As Ordered ONE (12:13)
[2022-05-04] MEDS ORDERED: PHENYLephrine 500MCG 5ML (100MCG/ML) SYRINGE As Ordered ONE (13:40)
[2022-05-04 14:35] VITALS: BP 105/55
== END 2022-05-04 14:44 | disposition home or self-care (01) ==
LOC: M OPP 11:12
PROVIDERS: ATTEND Internal Medicine Gastroenterology
DX: D12.2 Benign neoplasm of ascending colon (principal); K57.30 Diverticulosis of large intestine without perforation or abscess without bleeding; Z86.010 Personal history of colon polyps; Q39.4 Esophageal web; K22.89 Other specified disease of esophagus; R13.10 Dysphagia, unspecified; K31.89 Other diseases of stomach and duodenum; Z79.899 Other long term (current) drug therapy; Z85.118 Personal history of other malignant neoplasm of bronchus and lung; Z85.3 Personal history of malignant neoplasm of breast; Z85.841 Personal history of malignant neoplasm of brain; Z92.3 Personal history of irradiation; Z92.21 Personal history of antineoplastic chemotherapy; Z87.891 Personal history of nicotine dependence; Z80.1 Family history of malignant neoplasm of trachea, bronchus and lung; Z80.3 Family history of malignant neoplasm of breast; Z80.41 Family history of malignant neoplasm of ovary
CPT/HCPCS: 43239; 43450; 45380; 88305; J2370; J3010

== ENCOUNTER → 2022-05-27 | Outpatient (CLI) | payer MEDICARE, BC, OTHER ==
[~2022-05-27] MED LIST changes: -NS 1,000 ML IV ONE
== END ==
LOC: M PLAIMG 08:21
PROVIDERS: ATTEND Radiology Radiation Oncology
DX: C79.31 Secondary malignant neoplasm of brain (principal); J34.1 Cyst and mucocele of nose and nasal sinus

== ENCOUNTER → 2022-07-21 | Outpatient (CLI) | payer MEDICARE, BC, OTHER ==
[~2022-07-21] MED LIST changes: +PROHANCE 279.3MG/ML 15ML VIAL ONE
== END ==
LOC: M PLAIMG 13:06
PROVIDERS: ATTEND Nurse Practitioner
DX: C50.919 Malignant neoplasm of unspecified site of unspecified female breast (principal)
CPT/HCPCS: A9576; C8908

== ENCOUNTER → 2022-10-06 | Outpatient (CLI) | payer MEDICARE, BC, OTHER ==
[~2022-10-06] MED LIST changes: +GASTROGRAFIN SOLUTION 30ML As Ordered ONE; +ISOVUE-370 76% 100ML VIAL As Ordered ONE; -PROHANCE 279.3MG/ML 15ML VIAL ONE
== END ==
LOC: M RAD 12:28
PROVIDERS: ATTEND Nurse Practitioner
DX: C34.90 Malignant neoplasm of unspecified part of unspecified bronchus or lung (principal)
CPT/HCPCS: 71260; 74177; Q9963; Q9967

== ENCOUNTER → 2022-11-18 | Outpatient (CLI) | payer MEDICARE, BC, OTHER ==
[~2022-11-18] MED LIST changes: -GASTROGRAFIN SOLUTION 30ML As Ordered ONE; -ISOVUE-370 76% 100ML VIAL As Ordered ONE; +PROHANCE 279.3MG/ML 15ML VIAL As Ordered ONE
== END ==
LOC: M RAD 14:08
PROVIDERS: ATTEND Nurse Practitioner
DX: D35.01 Benign neoplasm of right adrenal gland (principal)
CPT/HCPCS: 74183; A9576

== ENCOUNTER → 2023-02-19 | Outpatient (CLI) | payer MEDICARE, BC, OTHER ==
[~2023-02-19] MED LIST changes: -PROHANCE 279.3MG/ML 15ML VIAL As Ordered ONE
== END ==
LOC: M RAD 09:52
PROVIDERS: ATTEND Nurse Practitioner
DX: R05.9 Cough, unspecified (principal)

== ENCOUNTER → 2023-05-24 | Outpatient (CLI) | payer MEDICARE, BC, OTHER ==
[~2023-05-24] MED LIST changes: +LEXA1TAB PO; +POTA-298 PO; -POTA1TAB14 PO
== END ==
LOC: M PLARAD 13:01
PROVIDERS: ATTEND Nurse Practitioner
DX: C34.11 Malignant neoplasm of upper lobe, right bronchus or lung (principal)
CPT/HCPCS: 78815; A9552

== ENCOUNTER → 2023-06-16 | Outpatient (CLI) | payer MEDICARE, BC, OTHER ==
[~2023-06-16] MED LIST changes: +PROHANCE 279.3MG/ML 5ML VIAL As Ordered ONE
== END ==
LOC: M RAD 08:39
PROVIDERS: ATTEND Nurse Practitioner
DX: C79.31 Secondary malignant neoplasm of brain (principal)
CPT/HCPCS: 70553; A9576

== ENCOUNTER → 2023-08-30 | Outpatient (CLI) | payer MEDICARE, BC, OTHER ==
[~2023-08-30] MED LIST changes: -PROHANCE 279.3MG/ML 5ML VIAL As Ordered ONE
== END ==
LOC: M WUC 08:41
PROVIDERS: ATTEND Nurse Practitioner Family
DX: M25.532 Pain in left wrist (principal)

== ENCOUNTER 2023-09-08 09:15 | Day surgery (SDC) | payer MEDICARE, BC, OTHER ==
[~2023-09-08] VITALS: Ht 157.5 cm; Wt 70.2 kg
[~2023-09-08 09:15] MED LIST changes: +OXYC1TAB23 PO; +ceFAZolin SOD 2 GM in IV 1 EA IV ONE
[2023-09-08] MEDS ORDERED: LR 1,000 ML IV SCH ×2 (10:10→13:50)
[2023-09-08] MEDS ORDERED: LIDOCAINE 1% SDV 5ML VIAL PN ONE (10:50)
[2023-09-08] MEDS ORDERED: dexAMETHasone 10MG/1ML VIAL PRES.FREE PN ONE (10:50)
[2023-09-08] MEDS ORDERED: MIDAZOLAM INJ 2MG/2ML VIAL IV PRN (10:50)
[2023-09-08] MEDS ORDERED: ROPIvacaine 0.5% 30ML VIAL PN ONE (10:50)
[2023-09-08] MEDS ORDERED: fentaNYL 100 MCG/2 ML INJECTION IV PRN ×2 (10:50→13:50)
[2023-09-08] MEDS ORDERED: propofoL 200 MG/20 ML VIAL As Ordered ONE (11:37)
[2023-09-08] MEDS ORDERED: LIDOCAINE 2% 100MG/5ML SDV (FOR ANES.) As Ordered ONE (11:37)
[2023-09-08] MEDS ORDERED: ONDANSETRON 4MG 2ML VIAL As Ordered ONE (11:46)
[2023-09-08] MEDS ORDERED: KETOROLAC 60MG 2ML VIAL As Ordered ONE (11:48)
[2023-09-08] MEDS ORDERED: BACITRACIN OINTMENT 30GM TUBE As Ordered ONE (11:50)
[2023-09-08] MEDS ORDERED: fentaNYL 100 MCG/2 ML INJECTION As Ordered ONE (12:41)
[2023-09-08] MEDS ORDERED: OXYC1TAB23 PO (13:40)
[2023-09-08] MEDS ORDERED: ONDANSETRON 4MG 2ML VIAL IV PRN (13:50)
[2023-09-08] MEDS ORDERED: HYDROMORPHONE HCL 0.5 MG/ 0.5 ML SYRINGE IV PRN (13:50)
[2023-09-08] MEDS ORDERED: oxyCODONE 5MG TAB PO PRN (13:50)
[2023-09-08 15:45] VITALS: BP 109/60; TEMP 97.7; O2SAT 97
== END 2023-09-08 15:59 | disposition home or self-care (01) ==
LOC: M SDC 09:15
PROVIDERS: ATTEND Orthopaedic Surgery Hand Surgery
DX: S52.572A Other intraarticular fracture of lower end of left radius, initial encounter for closed fracture (principal); W19.XXXA Unspecified fall, initial encounter; Y93.K1 Activity, walking an animal; Y92.9 Unspecified place or not applicable; Z85.3 Personal history of malignant neoplasm of breast; Z85.118 Personal history of other malignant neoplasm of bronchus and lung; Z87.891 Personal history of nicotine dependence; Z79.899 Other long term (current) drug therapy
CPT/HCPCS: 25608; 76000; C1713; J1100; J1885; J2250; J2405; J2795; J3010

== ENCOUNTER → 2023-09-13 | Outpatient (CLI) | payer MEDICARE, BC, OTHER ==
[~2023-09-13] MED LIST changes: -ceFAZolin SOD 2 GM in IV 1 EA IV ONE
== END ==
LOC: M SOG 07:49
PROVIDERS: ATTEND Physician Assistant
DX: S52.572A Other intraarticular fracture of lower end of left radius, initial encounter for closed fracture (principal); W18.30XA Fall on same level, unspecified, initial encounter; Y92.009 Unspecified place in unspecified non-institutional (private) residence as the place of occurrence of the external cause

== ENCOUNTER → 2023-11-25 | Outpatient (CLI) | payer MEDICARE, BC, OTHER | LOC: M SOG 08:02 | PROVIDERS: ATTEND Physician Assistant | DX: S52.572A Other intraarticular fracture of lower end of left radius, initial encounter for closed fracture (principal); W18.30XA Fall on same level, unspecified, initial encounter; Y92.009 Unspecified place in unspecified non-institutional (private) residence as the place of occurrence of the external cause ==

== ENCOUNTER → 2023-12-23 | Outpatient (CLI) | payer MEDICARE, BC ==
[~2023-12-23] MED LIST changes: +GASTROGRAFIN SOLUTION 30ML As Ordered ONE; +ISOVUE-370 76% 100ML VIAL As Ordered ONE
== END ==
LOC: M RAD 11:27
PROVIDERS: ATTEND Internal Medicine Medical Oncology
DX: C34.90 Malignant neoplasm of unspecified part of unspecified bronchus or lung (principal)
CPT/HCPCS: 71260; 74177; Q9963; Q9967

== ENCOUNTER → 2024-01-03 | Outpatient (CLI) | payer MEDICARE, BC ==
[~2024-01-03] MED LIST changes: -GASTROGRAFIN SOLUTION 30ML As Ordered ONE; -ISOVUE-370 76% 100ML VIAL As Ordered ONE; +PROHANCE 279.3MG/ML 15ML VIAL As Ordered ONE
== END ==
LOC: M RAD 12:26
PROVIDERS: ATTEND Internal Medicine Medical Oncology
DX: Z85.3 Personal history of malignant neoplasm of breast (principal); C78.00 Secondary malignant neoplasm of unspecified lung
CPT/HCPCS: A9576; C8908

== ENCOUNTER → 2024-02-17 | Outpatient (CLI) | payer MEDICARE, BC ==
[~2024-02-17] MED LIST changes: -PROHANCE 279.3MG/ML 15ML VIAL As Ordered ONE
== END ==
LOC: M WHC 13:27
PROVIDERS: ATTEND Internal Medicine
DX: R30.9 Painful micturition, unspecified (principal)

== ENCOUNTER → 2024-02-28 | Outpatient (REF) | payer MEDICARE, BC ==
[~2024-02-28] MED LIST changes: +LOMO2.5T PO; +PRED10TA2 PO
== END ==
LOC: M LAB REF 12:21
PROVIDERS: ATTEND Nurse Practitioner
DX: R19.7 Diarrhea, unspecified (principal); R11.0 Nausea

== ENCOUNTER 2024-03-21 06:30 | Day surgery (SDC) | payer MEDICARE, BC ==
[~2024-03-21] VITALS: Ht 157.5 cm; Wt 67.5 kg
[~2024-03-21 06:30] MED LIST changes: +DEXI60CA2 PO; +PRED10PA2 PO; +PROA1AER2 INH
[2024-03-21] MEDS: NS 1,000 ML IV ONE (07:13)
[2024-03-21] MEDS ORDERED: propofoL 200 MG/20 ML VIAL As Ordered ONE (07:58)
[2024-03-21] MEDS ORDERED: LIDOCAINE 2% 100MG/5ML SDV (FOR ANES.) As Ordered ONE (07:58)
[2024-03-21 08:05] VITALS: BP 108/66; TEMP 97.2; O2SAT 98
== END 2024-03-21 08:15 | disposition home or self-care (01) ==
LOC: M OPP 06:30
PROVIDERS: ATTEND Internal Medicine Gastroenterology
DX: K22.70 Barrett's esophagus without dysplasia (principal); K22.89 Other specified disease of esophagus; R10.13 Epigastric pain; Z79.51 Long term (current) use of inhaled steroids; Z79.52 Long term (current) use of systemic steroids; Z79.620 Long term (current) use of immunosuppressive biologic; Z79.891 Long term (current) use of opiate analgesic; Z79.899 Other long term (current) drug therapy

== ENCOUNTER → 2024-03-23 | Outpatient (CLI) | payer MEDICARE, BC ==
[~2024-03-23] MED LIST changes: +GASTROGRAFIN SOLUTION 30ML As Ordered ONE; +ISOVUE-370 76% 100ML VIAL As Ordered ONE
== END ==
LOC: M RAD 08:39
PROVIDERS: ATTEND Nurse Practitioner
DX: C34.90 Malignant neoplasm of unspecified part of unspecified bronchus or lung (principal)
CPT/HCPCS: 71260; 74177; Q9963; Q9967

== ENCOUNTER → 2024-04-25 | Outpatient (REF) | payer MEDICARE, OTHER ==
[~2024-04-25] MED LIST changes: +AZIT500T5 PO; +DIFI200T PO; -GASTROGRAFIN SOLUTION 30ML As Ordered ONE; -ISOVUE-370 76% 100ML VIAL As Ordered ONE
== END ==
LOC: M LAB REF 16:52
PROVIDERS: ATTEND Internal Medicine Medical Oncology
DX: A04.72 Enterocolitis due to Clostridium difficile, not specified as recurrent (principal)

== ENCOUNTER → 2024-05-10 | Outpatient (REF) | payer MEDICARE, OTHER | LOC: M LAB REF 12:28 | PROVIDERS: ATTEND Internal Medicine Medical Oncology | DX: K92.9 Disease of digestive system, unspecified (principal) ==

== ENCOUNTER → 2024-07-20 | Outpatient (CLI) | payer MEDICARE, BC ==
[~2024-07-20] MED LIST changes: +PROHANCE 279.3MG/ML 15ML VIAL As Ordered ONE
== END ==
LOC: M RAD 12:25
PROVIDERS: ATTEND Radiology Radiation Oncology
DX: C79.31 Secondary malignant neoplasm of brain (principal); C79.49 Secondary malignant neoplasm of other parts of nervous system
CPT/HCPCS: 70553; A9576

== ENCOUNTER → 2024-10-02 | Outpatient (CLI) | payer MEDICARE, BC ==
[~2024-10-02] MED LIST changes: -KEYT1INJ IV; +PEMB100V2 IV; -PROHANCE 279.3MG/ML 15ML VIAL As Ordered ONE
== END ==
LOC: M PLARAD 09:00
PROVIDERS: ATTEND Internal Medicine Hematology & Oncology
DX: C34.11 Malignant neoplasm of upper lobe, right bronchus or lung (principal)
CPT/HCPCS: 78815; A9552

== ENCOUNTER → 2025-02-09 | Outpatient (CLI) | payer MEDICARE, BC, OTHER ==
[~2025-02-09] MED LIST changes: +FERR160T4 PO
== END ==
LOC: M SOG 07:50
PROVIDERS: ATTEND Physician Assistant
DX: M19.031 Primary osteoarthritis, right wrist (principal)

== ENCOUNTER → 2025-08-20 | Outpatient (CLI) | payer MEDICARE, BC ==
[~2025-08-20] MED LIST changes: +POTA50TAB PO; +PROHANCE 279.3MG/ML 15ML VIAL ONE; -RA T500C2 PO; +TURM500C10 PO; -ZOLP5TAB PO; +ZOLP5TAB9 PO
== END ==
LOC: M PLAIMG 08:34
PROVIDERS: ATTEND Radiology Radiation Oncology
DX: C79.49 Secondary malignant neoplasm of other parts of nervous system (principal); C79.31 Secondary malignant neoplasm of brain
CPT/HCPCS: 70553; A9576